=== PATIENT | female | born 1945 | race Two or more races ===

== ENCOUNTER 2022-09-06 16:29 | Emergency (ER) | payer MEDICARE, OTHER ==
[~2022-09-06] VITALS: Ht 157.5 cm; Wt 71.7 kg
--- NOTE | 2022-09-06 16:43 | NUR ---
seen and examined by MD Veliz
[2022-09-06] MEDS ORDERED: DICLOFENAC 1% GEL (16:44)
[2022-09-06] MEDS ORDERED: MAGN250T10 PO (16:44)
[2022-09-06] MEDS ORDERED: ATOR10TA PO (16:44)
[2022-09-06] MEDS ORDERED: CYAN100T44 PO (16:44)
[2022-09-06] MEDS ORDERED: DEXL60CA3 PO (16:44)
[2022-09-06] MEDS ORDERED: MULT-594 PO (16:44)
[2022-09-06] MEDS ORDERED: MELO-107 PO (16:44)
[2022-09-06] MEDS ORDERED: APIX5TAB PO (16:44)
[2022-09-06] MEDS ORDERED: ACET-2605 PO (16:44)
[2022-09-06 17:04] LABS: MEAN CORPUSCULAR HEMOGLOBIN 30.6 uug (24.7-32.8); MEAN CORPUSCULAR VOLUME 92.5 fL (75.5-95.3); PLATELET COUNT (AUTO) 164 K/uL (179-408)
[2022-09-06 17:25] LABS: CARBON DIOXIDE 23 mmol/L (21-32); CHLORIDE 104 mmol/L (98-107); CREATININE 0.7 mg/dL (0.6-1.3); GLUCOSE 108 mg/dL (74-106); POTASSIUM 4.8 mmol/L (3.5-5.1); UREA NITROGEN, BLOOD 16 mg/dL (7-18)
--- NOTE | 2022-09-06 17:49 | NUR ---
Patient discharged to home in stable condition. Written and verbal after care instructions given. Patient verbalizes understanding of instructions. Stressed follow up or return to ER for worsening s/s.
[2022-09-06 17:59] VITALS: BP 122/80
== END 2022-09-06 18:08 | disposition home or self-care (01) ==
LOC: ER 16:29
DX: R25.1 Tremor, unspecified (principal); R00.2 Palpitations; F41.9 Anxiety disorder, unspecified; T50.995A Adverse effect of other drugs, medicaments and biological substances, initial encounter; E78.5 Hyperlipidemia, unspecified; Z79.899 Other long term (current) drug therapy; Y92.89 Other specified places as the place of occurrence of the external cause
CPT/HCPCS: 36415; 84484; 85025; 93005; A4663